=== PATIENT | male | born 1985 | race Two or more races ===

== ENCOUNTER 2024-01-06 04:15 | Emergency (ER) | payer BC, OTHER ==
[~2024-01-06] VITALS: Ht 172.7 cm; Wt 90.0 kg
[2024-01-06] MEDS: IOHEXOL 350 MG/ML 100ML IJ ONE (04:37)
[2024-01-06 04:39] LABS: Basophils # (auto) 0 10 ^3/uL (0-0.2); Basophils % (auto) 0.3 % (0.0-2.0); Eosinophils # (auto) 0.4 10 ^3/uL (0-0.8); Eosinophils % (auto) 5.8 % (0.0-7.0); Hematocrit 44.5 % (41.0-53.0); Hemoglobin 14.8 g/dL (13.5-17.5); Lymphocytes # (auto) 1.7 10 ^3/uL (0.4-5.4); Lymphocytes % (auto) 21.5 % (10.0-50.0); Mean Corpuscular Hemoglobin 29.2 pg (28.0-32.0); Mean Corpuscular Hgb Conc. 33.2 g/dL (32.0-36.0); Mean Corpuscular Volume 87.9 fL (80.0-100.0); Monocytes # (auto) 0.8 10 ^3/uL (0-1.3); Monocytes % (auto) 10.4 % (0.0-12.0); Neutrophils # (auto) 4.8 10 ^3/uL (1.6-8.6); Nucleated Red Blood Cells % 0.2 %; Red Blood Cells 5.07 10^6/uL (4.5-5.90); Red Cell Distribution Width 13.1 % (11.8-14.3); White Blood Cell 7.8 10^3/uL (4.4-10.8)
[2024-01-06 04:43] VITALS: PULSE 104; RESP 19; O2SAT 95
[2024-01-06] MEDS: MORPHINE SULFATE 4 MG/ML SYR/VIAL IV ONE (04:43)
[2024-01-06 04:51] LABS: Anion Gap 7 (5-15); Carbon Dioxide 25 mmol/L (20-30); Chloride 107 mmol/L (98-107); Potassium 3.8 mmol/L (3.5-5.1); Sodium 139 mmol/L (136-145)
[2024-01-06 04:52] LABS: Calcium 9.6 mg/dL (8.5-10.1)
[2024-01-06 04:57] LABS: Blood Urea Nitrogen 5 mg/dL (9-23); Glucose 115 mg/dL (74-106)
[2024-01-06] MEDS ORDERED: IBUP-1455 PO (05:49)
[2024-01-06] MEDS ORDERED: HYDR-4798 PO (05:49)
[2024-01-06] MEDS: HYDROcodone-ACET 10/325MG TAB PO ONE (06:00)
[2024-01-06] MEDS: KETOROLAC TROMETH 30 MG/ML 1ML VIAL IV ONE (06:00)
[2024-01-06 06:01] VITALS: BP 123/82; PULSE 90; RESP 22; O2SAT 95
== END 2024-01-06 06:41 | disposition home or self-care (01) ==
LOC: ER 04:15 → EDBD 04:15 → ER 06:41
DX: R07.89 Other chest pain (principal)
CPT/HCPCS: 36415; 71045; 71275; 80048; 84484; 85025; 85379; 93005; 96374; 96375; 99285; J1885; J2270; Q9967